=== PATIENT | male | born 1960 ===

== ENCOUNTER 2018-02-22 14:01 | Emergency (ER) | payer OTHER ==
[~2018-02-22] VITALS: Ht 165.1 cm; Wt 70.3 kg
[2018-02-22] MEDS ORDERED: NAPROSYN500 MG PO (15:27)
[2018-02-22] MEDS ORDERED: CYCLOBENZAPRINE10 MG PO (15:27)
== END 2018-02-22 15:45 | disposition home or self-care (01) ==
LOC: ED 14:01
DX: S70.11XA Contusion of right thigh, initial encounter (principal); W55.11XA Bitten by horse, initial encounter; Y93.89 Activity, other specified; Y92.89 Other specified places as the place of occurrence of the external cause; Y99.9 Unspecified external cause status